=== PATIENT | female | born 1950 | race African-American/Black ===

== ENCOUNTER 2020-10-29 12:36 | Emergency (ER) | payer OTHER ==
[~2020-10-29] VITALS: Ht 167.6 cm; Wt 118.7 kg
[2020-10-29 13:02] LABS: HEMATOCRIT. 32.4 % (36.0-48.0); HEMOGLOBIN. 10.3 g/dL (12.0-16.0); MEAN CORPUSCULAR HEMOGLOBIN 27.8 pg (28.0-32.0); MEAN CORPUSCULAR VOLUME 87.2 fL (81.0-99.0); MEAN PLATELET VOLUME 7.7 fl (7.4-10.4); PLATELET 218 x1000/uL (130-400); RED BLOOD CELL COUNT 3.72 mill/uL (4.2-5.4); RED CELL DISTRIBUTION WIDTH 12.8 % (11.6-14.6)
[2020-10-29 13:13] LABS: PROTHROMBIN TIME 10.4 sec (9.6-11.0)
[2020-10-29 13:28] LABS: CHLORIDE 106 mEq/L (98-107)
[2020-10-29] MEDS ORDERED: ASPIRIN 325MG EC TABLET PO ONE (13:45)
[2020-10-29] MEDS ORDERED: CLOPIDOGREL 75MG TABLET PO ONE (13:45)
[2020-10-29 13:47] LABS: PLATELET ESTIMATE NORMAL
[2020-10-29 13:49] LABS: ETHANOL BLOOD < 10 mg/dL
[2020-10-29 13:51] LABS: LDL CHOLESTEROL 128 mg/dL (5-100)
[2020-10-29] MEDS ORDERED: LABETALOL HCL 100MG TABLET PO ONE (15:30)
[2020-10-29 16:48] LABS: CLARITY URINE CLEAR (CLEAR); COLOR URINE YELLOW (YELLOW); KETONES URINE NEGATIVE (NEGATIVE); LEUKOCYTE ESTERASE URINE TRACE (NEGATIVE); NITRITE URINE NEGATIVE (NEGATIVE); OCCULT BLOOD URINE NEGATIVE (NEGATIVE); PH URINE 5.5 (4.5-8.0); PROTEIN URINE NEGATIVE (NEGATIVE); SPECIFIC GRAVITY URINE 1.014 (1.005-1.030); UROBILINOGEN URINE 0.2 E.U./dL (0.2-1.0)
[2020-10-29 17:37] LABS: *AMPHETAMINES SCREEN URINE NEGATIVE (NEGATIVE); *BARBITURATES SCREEN URINE NEGATIVE (NEGATIVE); *BENZODIAZEPINES SCREEN URINE NEGATIVE (NEGATIVE); *COCAINE SCREEN URINE NEGATIVE (NEGATIVE); CANNABINOID URINE SCREEN NEGATIVE (NEGATIVE); METHADONE URINE SCREEN NEGATIVE (NEGATIVE); OPIATES URINE SCREEN NEGATIVE (NEGATIVE); PHENCYCLIDINE URINE SCREEN NEGATIVE (NEGATIVE)
[2020-10-29] MEDS ORDERED: LABETALOL HCL 20MG/4ML CARPUJECT IV ONE (18:15)
[2020-10-29 21:22] VITALS: BP 182/99
== END 2020-10-29 21:22 | disposition short-term general hospital (02) ==
LOC: ER 12:36 → CANBEDREQ 19:37 → ER 21:22
DX: I63.9 Cerebral infarction, unspecified (principal); I10 Essential (primary) hypertension; E11.65 Type 2 diabetes mellitus with hyperglycemia; E78.00 Pure hypercholesterolemia, unspecified; Z20.822 Contact with and (suspected) exposure to COVID-19
CPT/HCPCS: 36415; 70450; 71045; 80053; 80305; 80320; 81003; 82962; 83721; 84484; 85025; 85610; 87426; 93005; 96374; 99285; J3490; G0480